=== PATIENT | male | born 1965 | race Caucasian/White ===

== ENCOUNTER 2018-07-31 20:09 | Emergency (ER) | payer BC ==
[2018-07-31] MEDS ORDERED: Lidocaine 1% 20 ML MDV ONE (20:14)
[2018-07-31] MEDS ORDERED: Adacel (T-DAP) 0.5 ML SYRINGE ONE (20:23)
[2018-07-31] MEDS ORDERED: Cephalexin 500 MG CAP ONE (20:36)
[2018-07-31] MEDS ORDERED: Bacitracin Zinc 1 Packet ONE ×2 (20:40)
== END 2018-07-31 21:02 | disposition home or self-care (01) ==
LOC: MADERS 20:09
DX: S61.210A Laceration without foreign body of right index finger without damage to nail, initial encounter (principal); W26.0XXA Contact with knife, initial encounter
CPT/HCPCS: 12001; 90471; 90715; J2001